=== PATIENT | female | born 1940 ===

== ENCOUNTER 2018-02-16 06:42 | Day surgery (SDC) | payer MEDICARE, OTHER ==
[2018-02-16 07:08] VITALS: BMI 26.9
--- NOTE | 2018-02-16 08:20 | CP.SDSHP ---
Same Day Surgery H & P - History Proposed Procedure: EGD/colonoscopy Pre-Op Diagnosis: abdominal pain, history of polyps - Previous Medical/Surgical History Comments: hyperlipidemia - Allergies Allergies: Allergies No Known Allergies Allergy (Verified 02/16/18 07:07) - Physical Exam General Appearance: NAD Vital Signs: Vital Signs 02/16/18 07:10 Temperature 98.0 F Pulse Rate 73 Respiratory 19 Rate Blood Pressure 126/75 O2 Sat by Pulse 97 Oximetry Mental Status: Alert & Oriented x3 Neuro: WNL Heart: WNL Lungs: WNL GI: WNL - {Optional Preform as Required} Abdomen: WNL - Impression Pt. Evaluated Today:Candidate for Anesthesia & Procedure: Yes - Date & Time Date: 02/16/18 Time: 08:19 Short Stay Discharge - Short Stay Discharge Admitting Diagnosis/Reason for Visit: EPIGASTRIC PAIN / P/H COLON POLYPS Disposition: HOME/ ROUTINE
[2018-02-16] MEDS ORDERED: Propofol 10 mg/ml Inj (20 ML) ONE ×3 (08:24→08:50)
[2018-02-16] MEDS ORDERED: ePHEDrine 50 mg/ml Inj ONE (08:49)
[2018-02-16 09:18] VITALS: TEMP 96.9
[2018-02-16 09:58] VITALS: O2SAT 98
[2018-02-16 10:28] VITALS: BP 123/67; PULSE 65; RESP 14
== END 2018-02-16 10:15 | disposition home or self-care (01) ==
LOC: C.ENDO 06:42
PROVIDERS: ATTEND Internal Medicine Gastroenterology
DX: Z12.11 Encounter for screening for malignant neoplasm of colon (principal); D12.5 Benign neoplasm of sigmoid colon; D12.3 Benign neoplasm of transverse colon; K29.30 Chronic superficial gastritis without bleeding; K57.30 Diverticulosis of large intestine without perforation or abscess without bleeding; K64.1 Second degree hemorrhoids; K21.0 Gastro-esophageal reflux disease with esophagitis; E78.5 Hyperlipidemia, unspecified; K29.80 Duodenitis without bleeding; Z86.010 Personal history of colon polyps
CPT/HCPCS: 43239; 45380; 88305; 88312; 88313; 88342; J2001; J2704; J3010

== ENCOUNTER 2018-11-08 14:30 | Emergency (ER) | payer OTHER ==
[2018-11-08 14:33] VITALS: BMI 28.3
[2018-11-08 14:37] VITALS: TEMP 97.8
[2018-11-08 15:22] LABS: BASO # 0.1 K/uL (0.0-0.2); BASO % 1.1 % (0.0-2.0); EOS # 0.2 K/uL (0.0-0.7); EOS % 2.9 % (0.0-4.0); HEMOGLOBIN 12.8 g/dL (11.0-16.0); LYMPH % 27.1 % (20.0-40.0); MEAN CELL VOLUME 90.3 fL (81.0-99.0); MEAN CORPUSCULAR HEMOGLOBIN 31.1 pg (27.0-31.0); MEAN CORPUSCULAR HGB CONC 34.4 g/dL (33.0-37.0); MEAN PLATELET VOLUME 9.5 fL (7.2-11.7); MONO # 0.5 K/uL (0.0-0.8); MONO % 6.8 % (0.0-10.0); NEUT # 4.6 K/uL (1.8-7.0); NEUT % 62.1 % (50.0-75.0); NRBC % 0.1 % (0.0-2.0); RBC 4.13 Mil/uL (3.80-5.20); RED CELL DISTRIBUTION WIDTH 13.8 % (11.5-14.5); WHITE BLOOD COUNT 7.5 K/uL (4.8-10.8)
[2018-11-08 15:30] LABS: INR 1.1; PROTHROMBIN TIME 11.5 SECONDS (9.7-12.2)
--- NOTE | 2018-11-08 15:32 | C.PDOC ---
History Of Present Illness 78 y/o female is sent by Dr. Lugo for left-sided chest pain that started this morning. Patient has history of thoracic aorta aneurysm. Dr. Lugo requested to do cardiac workup and chest CT angio. Patient denies any SOB, palpitations, fever, nausea, vomiting, dizziness, diaphoresis, or other complaints. Time Seen by Provider: 11/08/18 14:37 Chief Complaint (Nursing): Chest Pain History Per: Patient History/Exam Limitations: no limitations Onset/Duration Of Symptoms: Hrs Current Symptoms Are (Timing): Still Present Past Medical History Reviewed: Historical Data, Nursing Documentation, Vital Signs Vital Signs: Last Vital Signs Temp 97.8 F 11/08/18 14:33 Pulse 66 11/08/18 14:45 Resp 20 11/08/18 14:33 BP 144/78 11/08/18 14:33 Pulse Ox 98 11/08/18 14:33 - Medical History PMH: Anxiety, Colonic Polyps, Depression, Gastritis, Hypercholesterolemia Denies: Chronic Kidney Disease Surgical History: Endoscopy Family History: States: No Known Family Hx - Social History Hx Alcohol Use: No Hx Substance Use: No - Immunization History Hx Tetanus Toxoid Vaccination: No Hx Influenza Vaccination: No Hx Pneumococcal Vaccination: No Review Of Systems Except As Marked, All Systems Reviewed And Found Negative. Constitutional: Negative for: Fever, Sweats Cardiovascular: Positive for: Chest Pain. Negative for: Palpitations Respiratory: Negative for: Cough, Shortness of Breath Gastrointestinal: Negative for: Nausea, Vomiting, Diarrhea Neurological: Negative for: Dizziness Physical Exam - Physical Exam Appears: Non-toxic, No Acute Distress Skin: Warm, Dry Head: Atraumatic Eye(s): bilateral: Normal Inspection Oral Mucosa: Moist Neck: Supple Cardiovascular: Rhythm Regular, No Murmur Respiratory: Normal Breath Sounds, No Rales, No Rhonchi, No Wheezing Gastrointestinal/Abdominal: Soft, No Tenderness Extremity: Bilateral: Atraumatic, Normal Color And Temperature, Normal ROM Neurological/Psych: Oriented x3, Normal Speech, Normal Cognition ED Course And Treatment - Laboratory Results Result Diagrams: 11/08/18 15:19 11/08/18 15:19 O2 Sat by Pulse Oximetry: 98 (RA) Pulse Ox Interpretation: Normal - Other Rad CXR X-Ray: Read By Radiologist Interpretation: FINDINGS: LUNGS: The lungs are well inflated and clear. PLEURA: No pneumothorax or pleural effusion. CARDIOVASCULAR: The heart is normal in size. There are aortic atherosclerotic calcifications present. OSSEOUS STRUCTURES: Within normal limits for the patient's age. There is an an chor screw in the right humeral head. VISUALIZED UPPER ABDOMEN: Normal. OTHER FINDINGS: None. IMPRESSION: No active pulmonary disease. - CT Scan/US Angiograph CT Other Rad Studies (CT/US): Read By Radiologist, Radiology Report Reviewed CT/US Interpretation: FINDINGS: CT ANGIOGRAPHY OF THE CHEST WITH & WITHOUT C ONTRAST: AORTA (CHEST AND ABDOMEN): Mild aneurysmal dilatation of the ascending thoracic aorta measuring approximately 4.4 cm in greatest dimension. Descending thoracic aorta measures approximately 3.0 cm. No evidence of dissection or occlusion. Minor atherosclerotic plaque seen along the thoracic aorta. Minimal atherosclerotic plaque seen the origins of the great vessels. There are calcified atherosclerotic plaque changes seen along the abdominal aorta extending into the common iliac arteries. No evidence of abdominal aortic aneurysm abdominal aorta are unremarkable, without dissection or rupture. No intramural thrombus identified in the thoracic aorta on the non-contrast CT of the chest. The celiac axis, superior mesenteric artery, inferior mesenteric artery and the renal arteries are widely patent. The pelvic arteries are unremarkable. LUNGS: There is mild passive/dependent type atelectasis both posterior lower lung sevilla. Irregular linear scarring seen in the seen in the both lung bases. Linear and nodular scarring changes felt to be present in the lingular and middle lobe regions. MEDIASTINUM: Heart size within range of normal. No significant pericardial effusion. There is mild aneurysmal dilatation of the ascending thoracic aorta measuring approximately 4.4 cm in greatest dimension. Descending thoracic aorta measures approximately 3.0 cm. No evidence of dissection.. Minor calcified atherosclerotic plaque seen along the proximal descending thoracic aorta. Minor aspect sclerotic plaque seen at the origins of the great vessels. Pulmonary trunk measures approximately 2.5 cm. No. While this study was not dedicated to assess for PE, no obvious filling defects are seen within the pulmonary trunk, right and left main, lobar or segmental or proximal subsegmental branches of the pulmonary arteries. Trachea midline and patent with no large central endoluminal lesions. Small hiatal hernia. LYMPH NODES: No significant mediastinal or hilar adenopathy. PLEURA: Unremarkable. No pneumothorax. No pleural fluid. BONES: Unremarkable. OTHER FINDINGS: None. CT ANGIOGRAPHY OF THE ABDOMEN AND PELVIS WITH CONTRAST: LIVER: Unremarkable. No gross lesion or ductal dilatation. GALLBLADDER AND BILE DUCTS: Gallbladder physiologically distended. No evidence of intraluminal gallbladder calculi. PANCREAS: Pancreas is slightly atrophic and fatty replaced. No pancreatic mass collection or calcification. SPLEEN: Spleen exhibits heterogeneous attenuation pattern likely due to early phase injection. ADRENALS: There is peripheral calcification about a slightly enlarged left adrenal gland. Rule out prior adrenal hemorrhage with dystrophic type calcificat ion. KIDNEYS AND URETERS: Kidneys demonstrate symmetric nephrograms. No evidence of nephrolithiasis or hydronephrosis. VASCULATURE: Unremarkable. No aortic aneurysm. Mild aortic atherosclerotic calcification or mural plaque present. STOMACH AND BOWEL: Evaluation of the bowel is somewhat limited due to the lack of oral contrast material. The stomach is incompletely distended with thick-walled appearance. Rule out gastritis. Visualized loops of small bowel exhibit normal contour and caliber. No evidence of acute mechanical small bowel obstruction. Stool and air seen throughout the large bowel. Numerous colonic diverticula are seen throughout the colon including the right colon however no radiographic evidence of acute diverticulitis. Note that the rectum and distal sigmoid incompletely visualized. APPENDIX: The appendix is normal but incompletely visualized. PERITONEUM: Unremarkable. No free fluid. No free air. Small to medium sized fat containing umbilical hernia. LYMPH NODES: Unremarkable. No enlarged lymph nodes. BLADDER: Not included on this study. REPRODUCTIVE: Not included on this study. BONES: Mild multilevel degenerative spondylosis of the thoracic and lumbar spine. Persistent slight anterior subluxation L 4 over L5 felt to be due to hypertrophic facets as there is no evidence of spondylolysis. OTHER FINDINGS: None. IMPRESSION: Mild aneurysmal dilatation of the ascending thoracic aorta measuring up to approximately 4.4 cm in greatest dimension. Calcified atherosclerotic plaque seen along the thoracic and abdominal aorta extending into the common iliac arteries. No evidence of occlusion or dissection. Mild passive/dependent type atelectasis both posterior lung sevilla. Linear scarring seen in the both lung bases with linear and nodular scarring right middle lobe and lingular regions. Peripheral calcification about a enlarged left adrenal gland. Findings may be secondary to adrenal hemorrhage with subsequent dystrophic type calcification. Extensive diverticulosis without radiographic evidence of acute diverticulitis. Progress Note: Chest CT and chest XR ordered. Labs ordered and reviewed. Talked to Dr. Lugo and he instructed to discharge patient home and follow up with him in his office in 1 month. Patient is advised to return to ER if she feels worse. Disposition - Disposition Referrals: Christopher Lugo MD [Staff Provider] - Disposition: HOME/ ROUTINE Disposition Time: 18:42 Condition: STABLE Additional Instructions: Follow up with PMD/yacht hand as scheduled. Return to ED if feel worse. Instructions: Thoracic Aortic Aneurysm Forms: [facility] [facility] (Turkish) - Clinical Impression Clinical Impression: Chest pain - PA / DROP WIRE OPERATOR / Resident Statement MD/DO has reviewed & agrees with the documentation as recorded. - Scribe Statement The provider has reviewed the documentation as recorded by the Scribe Sridevi Hopkins All medical record entries made by the Seemaibsheba were at my direction and personally dictated by me. I have reviewed the chart and agree that the record accurately reflects my personal performance of the history, physical exam, medical decision making, and the department course for this patient. I have also personally directed, reviewed, and agree with the discharge instructions and disposition.
[2018-11-08 15:34] LABS: ALB/GLOB RATIO 1.7 (1.0-2.1); ALBUMIN 4.5 g/dL (3.5-5.0); ALT/SGPT 27 U/L (9-52); AST/SGOT 26 U/L (14-36); BLOOD UREA NITROGEN 20 mg/dL (7-17); CALCIUM 9.6 mg/dl (8.6-10.4); GFR NON-AFRICAN AMERICAN > 60
--- NOTE | 2018-11-08 15:34 | RAD ---
Date of service: 11/08/2018 PROCEDURE: CHEST RADIOGRAPH, 1 VIEW HISTORY: Chest pain COMPARISON: None available. FINDINGS: LUNGS: The lungs are well inflated and clear. PLEURA: No pneumothorax or pleural effusion. CARDIOVASCULAR: The heart is normal in size. There are aortic atherosclerotic calcifications present. OSSEOUS STRUCTURES: Within normal limits for the patient's age. There is an anchor screw in the right humeral head. VISUALIZED UPPER ABDOMEN: Normal. OTHER FINDINGS: None. IMPRESSION: No active pulmonary disease.
[2018-11-08] MEDS ORDERED: Iodixanol 320 MG/ML 100 ML BOTTLE IV ONE (16:17)
[2018-11-08 17:25] VITALS: RESP 18
--- NOTE | 2018-11-08 17:51 | CT ---
PROCEDURE: CT Angiography Chest, Abdomen and Pelvis with before and following intravenous injection of intravenous injection of contrast HISTORY: Chest pain in a patient with a history of thoracic aortic aneurysm. COMPARISON: Comparison made with prior CT scan of the abdomen and pelvis 11/08/2017. TECHNIQUE: Contiguous axial images of the chest, abdomen and pelvis were obtained in the phase of aortic enhancement. A noncontrast enhanced CT of the chest was also obtained to evaluate for possible intramural thrombus. Coronal and sagittal reformats were generated. IV dose administered: 100 cc Visipaque 320 contrast material Radiation dose: Total exam DLP = 1655.75 mGy-cm. This CT exam was performed using one or more of the following dose reduction techniques: Automated exposure control, adjustment of the mA and/or kV according to patient size, and/or use of iterative reconstruction technique. FINDINGS: CT ANGIOGRAPHY OF THE CHEST WITH & WITHOUT CONTRAST: AORTA (CHEST AND ABDOMEN): Mild aneurysmal dilatation of the ascending thoracic aorta measuring approximately 4.4 cm in greatest dimension. Descending thoracic aorta measures approximately 3.0 cm. No evidence of dissection or occlusion. Minor atherosclerotic plaque seen along the thoracic aorta. Minimal atherosclerotic plaque seen the origins of the great vessels. There are calcified atherosclerotic plaque changes seen along the abdominal aorta extending into the common iliac arteries. No evidence of abdominal aortic aneurysm abdominal aorta are unremarkable, without dissection or rupture. No intramural thrombus identified in the thoracic aorta on the non-contrast CT of the chest. The celiac axis, superior mesenteric artery, inferior mesenteric artery and the renal arteries are widely patent. The pelvic arteries are unremarkable. LUNGS: There is mild passive/dependent type atelectasis both posterior lower lung sevilla. Irregular linear scarring seen in the seen in the both lung bases. Linear and nodular scarring changes felt to be present in the lingular and middle lobe regions. MEDIASTINUM: Heart size within range of normal. No significant pericardial effusion. There is mild aneurysmal dilatation of the ascending thoracic aorta measuring approximately 4.4 cm in greatest dimension. Descending thoracic aorta measures approximately 3.0 cm. No evidence of dissection.. Minor calcified atherosclerotic plaque seen along the proximal descending thoracic aorta. Minor aspect sclerotic plaque seen at the origins of the great vessels. Pulmonary trunk measures approximately 2.5 cm. No. While this study was not dedicated to assess for PE, no obvious filling defects are seen within the pulmonary trunk, right and left main, lobar or segmental or proximal subsegmental branches of the pulmonary arteries. Trachea midline and patent with no large central endoluminal lesions. Small hiatal hernia. LYMPH NODES: No significant mediastinal or hilar adenopathy. PLEURA: Unremarkable. No pneumothorax. No pleural fluid. BONES: Unremarkable. OTHER FINDINGS: None. CT ANGIOGRAPHY OF THE ABDOMEN AND PELVIS WITH CONTRAST: LIVER: Unremarkable. No gross lesion or ductal dilatation. GALLBLADDER AND BILE DUCTS: Gallbladder physiologically distended. No evidence of intraluminal gallbladder calculi. PANCREAS: Pancreas is slightly atrophic and fatty replaced. No pancreatic mass collection or calcification. SPLEEN: Spleen exhibits heterogeneous attenuation pattern likely due to early phase injection ADRENALS: There is peripheral calcification about a slightly enlarged left adrenal gland. Rule out prior adrenal hemorrhage with dystrophic type calcification. KIDNEYS AND URETERS: Kidneys demonstrate symmetric nephrograms. No evidence of nephrolithiasis or hydronephrosis. VASCULATURE: Unremarkable. No aortic aneurysm. Mild aortic atherosclerotic calcification or mural plaque present. STOMACH AND BOWEL: Evaluation of the bowel is somewhat limited due to the lack of oral contrast material. The stomach is incompletely distended with thick-walled appearance. Rule out gastritis. Visualized loops of small bowel exhibit normal contour and caliber. No evidence of acute mechanical small bowel obstruction. Stool and air seen throughout the large bowel. Numerous colonic diverticula are seen throughout the colon including the right colon however no radiographic evidence of acute diverticulitis. Note that the rectum and distal sigmoid incompletely visualized. APPENDIX: The appendix is normal but incompletely visualized. PERITONEUM: Unremarkable. No free fluid. No free air. Small to medium sized fat containing umbilical hernia. LYMPH NODES: Unremarkable. No enlarged lymph nodes. BLADDER: Not included on this study. REPRODUCTIVE: Not included on this study. BONES: Mild multilevel degenerative spondylosis of the thoracic and lumbar spine. Persistent slight anterior subluxation L 4 over L5 felt to be due to hypertrophic facets as there is no evidence of spondylolysis. OTHER FINDINGS: None. IMPRESSION: Mild aneurysmal dilatation of the ascending thoracic aorta measuring up to approximately 4.4 cm in greatest dimension. Calcified atherosclerotic plaque seen along the thoracic and abdominal aorta extending into the common iliac arteries. No evidence of occlusion or dissection. Mild passive/dependent type atelectasis both posterior lung sevilla. Linear scarring seen in the both lung bases with linear and nodular scarring right middle lobe and lingular regions. Peripheral calcification about a enlarged left adrenal gland. Findings may be secondary to adrenal hemorrhage with subsequent dystrophic type calcification. Extensive diverticulosis without radiographic evidence of acute diverticulitis.
[2018-11-08 18:44] VITALS: O2SAT 98
[2018-11-08 18:48] VITALS: BP 145/89; PULSE 68
--- NOTE | 2018-11-10 00:02 | CARD ---
APPROVED REPORT Date of service: 11/08/2018 EKG Measurement Heart [id number] <Conclusion> Normal sinus rhythm Normal ECG
== END 2018-11-08 18:51 | disposition home or self-care (01) ==
LOC: C.ER 14:30
DX: R07.9 Chest pain, unspecified (principal); E78.00 Pure hypercholesterolemia, unspecified
CPT/HCPCS: 71045; 71275; 74175; 80053; 82550; 82553; 84484; 85025; 85610; 85730; 99284; Q9967